=== PATIENT | female | born 1995 | race Caucasian/White ===

== ENCOUNTER 2024-12-17 13:14 | Outpatient (CLI) | payer OTHER, SELFPAY ==
--- NOTE | ~2024-12-17 | XR_ITS ---
EXAMINATION: XR chest 2V 12/17/2024 13:41 INDICATION: Persistent cough PROCEDURE: 2 view chest COMPARISON: 11/25/2018 FINDINGS: The lungs are clear. The cardiomediastinal silhouette is within normal limits. There are no pleural effusions. There is no pneumothorax suspected. IMPRESSION: 1: NO ACUTE CARDIOPULMONARY DISEASE. Reviewed, dictated and finalized at location A.
== END 2024-12-17 13:15 | disposition home or self-care (01) ==
DX: R05.3 Chronic cough (principal)
CPT/HCPCS: 71046